=== PATIENT | female | born 1990 | race Caucasian/White ===

== ENCOUNTER 2019-05-10 23:25 | Emergency (ER) | payer SELFPAY ==
[2019-05-11] MEDS ORDERED: Ibuprofen 200 MG TAB ONE (00:28)
== END 2019-05-11 00:33 | disposition home or self-care (01) ==
LOC: BURERS 23:25
DX: S00.33XA Contusion of nose, initial encounter (principal); F17.210 Nicotine dependence, cigarettes, uncomplicated; W06.XXXA Fall from bed, initial encounter
CPT/HCPCS: 99283

== ENCOUNTER 2021-12-11 19:51 | Emergency (ER) | payer OTHER ==
[2021-12-11 20:30] LABS: Bilirubin Negative (Negative); Blood, Urine Negative (Negative); Clarity Cloudy (Clear); Glucose, Urine (Dipstick) Negative (Negative); Ketone, Urine Negative (Negative); Leukocyte Negative (Negative); Nitrite Negative (Negative); Protein, Urine (Dipstick) Negative (Neg-Trace); Specific Gravity, Urine 1.015 (1.005-1.030); Urobilinogen 0.2 mg/dL (Less than 2)
[2021-12-11] MEDS ORDERED: Morphine 4 MG/ML VIAL ONE (20:39)
[2021-12-11 20:54] LABS: #Eosinphils 0.2 thou/uL (0.0-0.7); #Monocytes 0.7 thou/uL (0.11-0.59); #Neutrophils 9.7 thou/uL (1.40-6.50); %Basophils 0.3 % (0.0-1.0); %Eosinophils 1.3 % (0.0-10.0); %Lymphocytes 22.1 % (21.0-51.0); %Neutrophils 71.3 % (42.0-75.0); Hemoglobin 13.4 g/dL (12.0-16.0); Mean Corpuscular HGB CONC 34.3 g/dL (32.0-36.0); Mean Corpuscular Hemoglobin 30.2 pg (27.0-31.0); Mean Platelet Volume 6.9 fL (7.4-10.4); Platelet Count 380 thou/uL (130-400); RBC Distribution Width 11.8 % (11.5-14.5); Red Blood Cell (RBC) Count 4.44 mill/uL (4.20-5.40); White Blood Cell (WBC) Count 13.6 thou/uL (4.8-10.8)
[2021-12-11 21:12] LABS: ALT (SGPT) 16 U/L (8-55); AST (SGOT) 12 U/L (5-34); Albumin 3.3 g/dL (3.5-5.0); Alkaline Phosphatase 83 U/L (40-110); Anion Gap 15 mmol/L (10-20); BUN (Urea Nitrogen) 7 mg/dL (7.0-18.7); Bilirubin, Total 0.3 mg/dL (0.2-1.2); Calc. Creatinine Clearance 0 mL/min (70-130); Carbon Dioxide 22 mmol/L (22-29); Chloride 107 mmol/L (98-107); Estimated GFR 123; Globulin 3.3 g/dL (2.4-3.5); Glucose 100 mg/dL (70-105); Lipase 17 U/L (8-78); Potassium 3.6 mmol/L (3.5-5.1); Protein, Total 6.6 g/dL (6.0-8.3); Sodium 140 mmol/L (136-145)
== END 2021-12-11 21:30 | disposition home or self-care (01) ==
LOC: BURERS 19:51
DX: O99.891 Other specified diseases and conditions complicating pregnancy (principal); R10.9 Unspecified abdominal pain; M54.9 Dorsalgia, unspecified; F17.210 Nicotine dependence, cigarettes, uncomplicated; Z3A.32 32 weeks gestation of pregnancy
CPT/HCPCS: 80053; 81003; 83690; 85025; 96372; 99284; J2270

== ENCOUNTER 2022-02-08 00:05 | Emergency (ER) | payer OTHER ==
[2022-02-08] MEDS ORDERED: Lidocaine 2% Jelly 5 ML TUBE ONE (00:44)
== END 2022-02-08 01:10 | disposition home or self-care (01) ==
LOC: BURERS 00:05
DX: K64.4 Residual hemorrhoidal skin tags (principal); F17.210 Nicotine dependence, cigarettes, uncomplicated
CPT/HCPCS: 99283

== ENCOUNTER 2022-12-22 09:49 | Emergency (ER) | payer OTHER | END 2022-12-22 10:25 | disposition home or self-care (01) | LOC: BURERS 09:49 | DX: J02.9 Acute pharyngitis, unspecified (principal); F17.210 Nicotine dependence, cigarettes, uncomplicated | CPT/HCPCS: 87081; 87430; 99283 ==